=== PATIENT | male | born 1970 | race Caucasian/White ===

== ENCOUNTER 2024-09-19 06:13 | Day surgery (SDC) | payer BC, SELFPAY ==
[2024-09-19 13:43] VITALS: BMI 31.0
[2024-09-19 13:49] VITALS: BMI 31.0
[2024-09-19 13:50] VITALS: BP 130/97
[2024-09-19 13:57] LABS: Glucose - Point of Care 110 mg/dl (70-99)
[2024-09-19 15:04] VITALS: BP 123/80
[2024-09-19 15:15] VITALS: BP 126/79
[2024-09-19 15:30] VITALS: BP 127/79
--- NOTE | 2024-09-21 06:51 | W.SUR.PREOP ---
Pre-Operative Surgical Note
-
I have examined this patient prior to the performance of the scheduled procedure.
The patient's condition is unchanged from the time of the current History and
Physical and the patient is able to undergo the scheduled procedure.
== END 2024-09-19 15:38 | disposition home or self-care (01) ==
LOC: GI 06:13
PROVIDERS: ATTENDING PHYSICIAN Surgery
DX: Z12.11 Encounter for screening for malignant neoplasm of colon (principal); K57.30 Diverticulosis of large intestine without perforation or abscess without bleeding; D12.3 Benign neoplasm of transverse colon
CPT/HCPCS: 45385; 88305; 82962

== ENCOUNTER 2024-10-03 06:02 | Day surgery (SDC) | payer BC, SELFPAY ==
[2024-09-22 14:00] VITALS: BMI 30.8
[2024-10-03] VITALS (9 sets, daily range): BP systolic 96–140; BP diastolic 60–92; BMI 30.8
[2024-10-03] MEDS: TYLENOL 1000 MG PO (07:43)
--- NOTE | 2024-10-03 07:44 | HP.FOC2 ---
Focused History & Physical
Chief Complaint
HPI:
Chief Complaint: Umbilical hernia
HPI / Indication for Planned Procedure: This is a 54-year-old male with a symptomatic umbilical hernia. Will plan for a robotic umbilical hernia repair with mesh
Relevant Past Medical History: Negative
Relevant Social History: Negative
Relevant Family History: Negative
Relevant Past Surgical History: Negative
Review of Systems
Review of Pertinent Systems: All Systems Negative
Medication
See Medication form for detailed medications: Yes
Medication List (including Herbals & OTC):
aspirin 81 mg capsule 81 mg PO DAILY 09/19/24
atorvastatin 40 mg tablet 40 mg PO DAILY 09/19/24
lisinopril 10 mg tablet 10 mg PO DAILY 09/19/24
metformin 500 mg tablet 500 mg PO BID 09/19/24
drougaem-rkn-EZ 0.4 mg-calcium 162 mg-iron 18 cv-ddlnwmq-bevaam tablet 1 tab PO DAILY 09/19/24
Medications Reviewed: Yes
Allergies and Reactions
Patient has Allergies: Yes
Noted Allergies and Reactions:
Allergy/AdvReac Type Severity Reaction Status Date / Time
No Known Allergies Allergy Verified 10/03/24 07:31
Pertinent Physical Exam
All Other Systems: Negative
Head/Neck: Normal
Diagnosis / Assessment
This is a 54-year-old male with a symptomatic umbilical hernia.
Plan / Procedure
Will plan for a robotic umbilical hernia repair with mesh
Anesthesia/Sedation to be done by Anesthesia Provider: Yes
[2024-10-03 07:51] LABS: Glucose - Point of Care 141 mg/dl (70-99)
[2024-10-03] MEDS: NORMOSOL-R/PLASMALYTE-A 1000 IV (07:53)
[2024-10-03 10:02] LABS: Glucose - Point of Care 207 mg/dl (70-99)
--- NOTE | 2024-10-03 11:23 | W.IMMPOSTOP ---
Surgical Immed Post Op Note
-
Primary Surgeon: Kt Victor MD
Assisting Surgeon: None
Pre-op Diagnosis: Umbilical
Post-op Diagnosis: Same
Procedure Performed: Robotic umbilical hernia repair with mesh (LUIS approach)
Anesthesia Type: General
Specimen / Cultures: None
Estimated Blood Loss: 3 cc
Complications: None
Operative Findings: 2 cm defect containing preperitoneal/falciform fat. Closed transversely with a 0 V-Loc 180 suture and then reinforced in the preperitoneal space with a 10 cm round Bard soft uncoated polypropylene mesh. Mesh completely excluded
from the abdominal viscera.
--- NOTE | 2024-10-03 11:24 | OR.RPT ---
Operative Report
Operative Report
Patient Name: Davis Ellington
: 1970
Date of Operation: 10/03/2024
Preoperative Diagnosis: Umbilical hernia
Postoperative Diagnosis: Same
Procedure(s):
Robotic umbilical hernia repair with mesh (LUIS approach)
Surgeon(s):
Dr. Victor
Photographer Still(s):
JOSEPH Morris
Anesthesia: General
Estimated Blood Loss: [3] cc
Urine Output: None
Drains/Lines/Implants:
10 cm round Bard soft mesh
Specimens:
None
HPI/Surgical Indications:
This is a 54-year-old male who was seen in my office for a symptomatic umbilical bulge and diagnosed with a reducible umbilical hernia. Risks/Benefits/Alternatives were discussed at length, and the patient agreed to proceed with surgery.
Operative Findings: 2 cm defect containing preperitoneal/falciform fat. Closed transversely with a 0 V-Loc 180 suture and then reinforced in the preperitoneal space with a 10 cm round Bard soft uncoated polypropylene mesh. Mesh completely excluded
from the abdominal viscera.
Procedure Description:
The patient was brought to the Operating Room and placed in the supine position with the arms tucked. IV antibiotics were infused and Venodyne stockings placed. Following uneventful induction of general endotracheal anesthesia, an orogastric tube
was placed. The abdomen was prepped and draped in the usual sterile fashion. The abdomen was entered using a Veress technique which required [1] pass, pneumoperitoneum to 15 mmHg was obtained without difficulty. An 8mm trochar was passed through
the abdominal wall roughly 20 cm laterally from the defect in the left upper quadrant, we then confirmed that no inadvertent injury was made while passing the trocar or Veress needle. We then placed two additional 8 mm ports in the left lower
quadrant. Bilateral tap blocks were performed. The robot was docked. We then introduced our prograsper through the inferior/left hand port and a monopolar scissors through the superior port. We then turned our attention to the hernia which had
no intra-abdominal contents. We then began taking a flap down roughly 6 cm away from the defect and roughly 12 cm in length taking care to stay in the pretransversalis plane. The preperitoneal fat was taken down off of the posterior rectus sheath
both superior and inferior to the hernia defect such that we were able to get our 'volcano sign'. We then worked on reducing the defect which contained preperitoneal fat and continued our dissection out laterally for an additional 6 to 7 cm. Once
our flap was created we introduced a ruler and a 0 V-Loc 180. The main hernia defect measured [2] cm. The pocket measured [12 x 12] cm. I had my warehouse assistant cut a 10 cm round piece of Bard soft mesh marked with 0 Vicryl suture at the center, as I
closed the umbilical defect. Care was taken to take superficial bites of the umbilical skin tissue in order to close the space but not violate the skin. The mesh was then sutured to the posterior rectus sheath in 4 quadrants with 2-0 vircyls
to ensure good apposition. A 2-0 Monocryl was introduced which was used to close our flap. All sutures were removed. The robot was undocked. The ports were removed under direct visualization and pneumoperitoneum was evacuated. The port sites were
closed with 4-0 Monocryl followed by Dermabond. A suction Tegaderm dressing was placed on the umbilicus to help further decrease the space. Counts were correct and overall, the patient tolerated the procedure well and was taken to the
Recovery Room postoperatively in stable condition.
I was the attending physician and performed the procedure with assistance from the DIRECTOR OF TRANSPORTATION above. I was present for all portions of the case except for skin closure.
Kt Victor MD
== END 2024-10-03 11:20 | disposition home or self-care (01) ==
LOC: SDS 06:02
PROVIDERS: ATTENDING PHYSICIAN Surgery
DX: K42.9 Umbilical hernia without obstruction or gangrene (principal)
CPT/HCPCS: 49591; 36415; 82962; 93005; C1781